=== PATIENT | female | born 1940 | race Caucasian/White ===

== ENCOUNTER → 2018-06-01 | Outpatient (CLI) | payer MEDICARE ==
[~2018-06-01] MED LIST: CATHETER FLUSH 10 ML SYR IV PRN; REGADENOSON 0.4 MG/5 ML SYR (LEXISCAN) IV ONE
[2018-06-01 12:38] VITALS: BP 136/74
--- NOTE | 2018-06-02 04:49 | STRESS TEST ---
DATE OF SERVICE: 06/01/2018 RESTING AND POST REGADENOSON TECHNETIUM-99M TETROFOSMIN SPECT CT IMAGING ORDERING PHYSICIAN: Dr. Hoff. PRIMARY PHYSICIAN: Dr. Chandra. CLINICAL DIAGNOSES: Palpitations, diabetes, and tobacco use. Baseline images were carried out after injection of 10.24 mCi of technetium-99m Tetrofosmin. This was followed by 0.4 mg regadenoson and 30.9 mCi of technetium-99m Tetrofosmin for stress imaging. The electrocardiogram showed sinus rhythm at baseline. It did not change significantly with the regadenoson infusion. The patient tolerated the procedure well. Review of images at rest and following stress does not indicate any significant perfusion defects. Gated images show hyperdynamic left ventricular systolic function with a calculated ejection fraction 92%. TID is absent (0.87). Left ventricular end diastolic volume is 16 mL. CONCLUSIONS: 1. No evidence of significant myocardial ischemia or infarction is seen. 2. Hyperdynamic left ventricular systolic function with a calculated ejection fraction 92%. 3. No regional wall motion abnormalities seen on this study. Job ID: [id number] DocumentID: [id number] Dictated Date: 06/01/2018 23:31:44 Pastry Cook Helper Date: 06/02/2018 04:48:09 Dictated By: KIRK HOFF MD, MA, FACP, FACC,
== END ==
LOC: CARD 09:31
PROVIDERS: ATTEND Internal Medicine Cardiovascular Disease
DX: R00.2 Palpitations (principal); E11.22 Type 2 diabetes mellitus with diabetic chronic kidney disease; N18.3 Chronic kidney disease, stage 3 (moderate); Z72.0 Tobacco use
CPT/HCPCS: 78452; 93017

== ENCOUNTER 2018-09-09 11:00 | Outpatient (CLI) | payer MEDICARE ==
[~2018-09-09] VITALS: Ht 149.9 cm; Wt 57.2 kg
[~2018-09-09 11:00] MED LIST changes: -CATHETER FLUSH 10 ML SYR IV PRN; -REGADENOSON 0.4 MG/5 ML SYR (LEXISCAN) IV ONE; +SITA100T12 PO
[2018-09-09] MEDS ORDERED: TERI202.4P SQ (11:04)
[2018-09-09] MEDS ORDERED: INSU100I29 SQ (11:04)
[2018-09-09] MEDS ORDERED: BUDE10.2 IH (11:04)
[2018-09-09] MEDS ORDERED: GLIM2TAB PO (11:04)
== END 2018-09-09 11:08 | disposition home or self-care (01) ==
LOC: PREOP 11:00
PROVIDERS: ATTEND Specialist
DX: Z01.818 Encounter for other preprocedural examination (principal)

== ENCOUNTER 2018-09-29 05:52 | Outpatient (CLI) | payer MEDICARE ==
[~2018-09-29 05:52] MED LIST changes: +BUDE10.2 IH; +GLIM2TAB PO; +INSU100I29 SQ; +TERI202.4P SQ
== END 2018-09-29 10:28 | disposition home or self-care (01) ==
LOC: PREOP 05:52
PROVIDERS: ATTEND Specialist
DX: Z01.818 Encounter for other preprocedural examination (principal)

== ENCOUNTER 2018-10-01 06:33 | Day surgery (SDC) | payer MEDICARE ==
[~2018-10-01] VITALS: Ht 149.9 cm; Wt 57.2 kg
[2018-10-01 06:35] VITALS: BP 144/79
[2018-10-01] MEDS ORDERED: TIMOLOL MALEATE 0.5% 5 ML (TIMOPTIC) BTL OU PRN (06:45)
[2018-10-01] MEDS ORDERED: MOXIFLOXACIN OPHTH SOLN 5 MG/ML 0.3 ML SYRINGE OP ONE (06:45)
[2018-10-01] MEDS ORDERED: POVIDONE (BETADINE) OPHTH SOLN 5% 30 ML OP ONE (06:45)
[2018-10-01] MEDS ORDERED: LIDOCAINE PF 1% 2 ML AMP IR PRN (06:45)
[2018-10-01] MEDS: TETRACAINE 0.5% OPHTH SOLN 4 ML BTL (SINGLE DOSE ONLY) OU PRN ×4 (06:49→07:08)
[2018-10-01] MEDS: PHENYLEPHRINE 10% OPHTH (NEO-SYN) 5 ML BTL OU SCH ×3 (06:57→07:08)
[2018-10-01] MEDS: CYCLOPENTOLATE 1% (CYCLOGYL) 2 ML DROPS OP SCH ×3 (06:57→07:08)
[2018-10-01] MEDS ORDERED: MIDAZOLAM 2 MG/2 ML (VERSED) VIAL ONE (07:27)
--- NOTE | 2018-10-01 07:27 | Ophthalmologist Pre-Op Note ---
Pre-Operative Progress Note H&P Reviewed The H&P was reviewed, patient examined and no changes noted. Date H&P Reviewed: Oct 01, 2018 Time H&P Reviewed: 07:27 Pre-Op Dx Cataract, Left Eye DEVIN DIETZ MD Oct 01, 2018 07:27
--- NOTE | 2018-10-01 07:50 | Ophthalmology Operative Report ---
Cataract removal/placement IOL PREOPERATIVE DIAGNOSIS: Cataract Left Eye POSTOPERATIVE DIAGNOSIS: Cataract Left Eye PROCEDURE: Cataract removal and placement of posterior chamber implant, left eye SURGEON: Carl Dietz ANESTHESIA: Topical with sedation COMPLICATIONS: None ESTIMATED BLOOD LOSS: Minimal DESCRIPTION OF PROCEDURE: After proper informed consent was obtained, the patient, a 78 female, was taken to the Operating Room and the left eye was anesthetized with tetracaine. The left eye was then prepped and draped in the usual manner. A wire lid speculum was placed. A paracentesis was made at the left hand position. Preservative free lidocaine was injected into the anterior chamber followed by viscoelastic. A clear corneal incision was made in the temporal position. A capsulorrhexis was preformed and the central nuclear and cortical material were removed. The posterior capsule was polished and an Ahmet 23.0 AU00T0 was placed into the capsular bag. The residual viscoelastic was aspirated and balanced saline solution was injected into the anterior chamber. Moxifloxacin was injected into the anterior chamber. The wound was checked and found to be water tight. The patient tolerated the procedure well without complications. CARL DIETZ MD Oct 01, 2018 07:50
[2018-10-01 08:00] VITALS: BP 142/73
--- NOTE | 2018-10-01 10:33 | Anesthesia-General Post-Op ---
MAC Patient Condition Mental Status/LOC: Same as Preop Cardiovascular: Satisfactory Nausea/Vomiting: Absent Respiratory: Satisfactory Pain: Controlled Complications: Absent Post Op Complications Complications None Follow Up Care/Instructions Patient Instructions None needed. Anesthesiology Discharge Order Discharge Order Patient is doing well, no complaints, stable vital signs, no apparent adverse anesthesia problems. No complications reported per nursing. BREN GONZALES CRNA Oct 01, 2018 10:33
== END 2018-10-01 08:00 | disposition home or self-care (01) ==
LOC: SDC 06:33
PROVIDERS: ATTEND Specialist
DX: H25.12 Age-related nuclear cataract, left eye (principal); M19.91 Primary osteoarthritis, unspecified site; J44.9 Chronic obstructive pulmonary disease, unspecified; E11.40 Type 2 diabetes mellitus with diabetic neuropathy, unspecified; F17.210 Nicotine dependence, cigarettes, uncomplicated; Z79.4 Long term (current) use of insulin; Z79.899 Other long term (current) drug therapy; Z88.2 Allergy status to sulfonamides; Z88.5 Allergy status to narcotic agent

== ENCOUNTER 2019-10-03 21:56 | Inpatient (IN) | payer MEDICARE, OTHER ==
[~2019-10-03] VITALS: Ht 147 cm; Wt 61.0 kg
[~2019-10-03 21:56] MED LIST changes: -ASCO250T17 PO; -CHOL500050 PO; -DOCU100T7 PO; -GABA-486 PO; -MELA5TAB14 PO; -OMEP20TA33 PO
--- NOTE | 2019-10-03 23:27 | NUR ---
ARRIVED VIA [facility]. PLACED IN ROOM CU5. TRANSFERRED TO ICU MONITORS. INITIAL ASSESSMENT TOOK PLACE. SEE EMR.
[2019-10-03 23:36] VITALS: BP 80/53
[2019-10-03 23:38] VITALS: BP 100/55
[2019-10-03] MEDS: NOREPINEPHRINE 4 MG/250 ML 250 ML IV SCH (23:40)
[2019-10-03] MEDS ORDERED: LACTATED RINGERS 1,000 ML IV ONE (23:59)
[2019-10-04] VITALS (25 sets, daily range): BP systolic 83–141; BP diastolic 49–106
[2019-10-04] MEDS ORDERED: ACETAMINOPHEN 325 MG TABLET PO PRN
--- NOTE | 2019-10-04 00:05 | NUR ---
CONTACTED E-PHARMACY DISCUSSED ZOSYN DOSING. REPORTED THAT ZOSYN WAS GIVEN TO PATIENT AT [facility] [place] 2130 AND RECEIVED 2.25G IV. VERIFIED TO GIVE THE 4.5G DOSE OF ZOSYN IV AT 0300.
[2019-10-04] MEDS: LACTATED RINGERS 1,000 ML IV SCH ×4 (00:10→20:39)
--- NOTE | 2019-10-04 00:15 | NUR ---
CONTACTED DR. ZHANG FOR CENTRAL LINE PLACEMENT. BRIEFED HIM ON PATIENT. INFORMED HIM LEVOPHED IS RUNNING IN 18GA LEFT AC IV. WILL COME IN PLACE CENTRAL LINE IN AM AND TO CONTACT HIM IF THE LINE GOES BAD.
[2019-10-04 02:17] LABS: BASOPHILS % (AUTO) 0 % (0-10); EOSINOPHILS % (AUTO) 0 % (0-10); HEMATOCRIT 34 % (35-52); HEMOGLOBIN 11.2 G/DL (11.5-16.0); LYMPHOCYTES # (AUTO) 1.7 X 10^3 (1.0-4.0); LYMPHOCYTES % (AUTO) 7 % (12-44); MEAN CORPUSCULAR HEMOGLOBIN 29 PG (25-34); MEAN CORPUSCULAR HGB CONC 33 G/DL (32-36); MEAN CORPUSCULAR VOLUME 89 FL (80-99); MEAN PLATELET VOLUME 11.1 FL (7.4-10.4); MONOCYTES # (AUTO) 1.7 X 10^3 (0.0-1.0); MONOCYTES % (AUTO) 7 % (0-12); NEUTROPHILS # (AUTO) 22.6 X 10^3 (1.8-7.8); NEUTROPHILS % (AUTO) 87 % (42-75); PLATELET COUNT 254 10^3/uL (130-400); RED CELL DISTRIBUTION WIDTH 13.9 % (10.0-14.5); WHITE BLOOD COUNT 26.1 10^3/uL (4.3-11.0)
[2019-10-04 02:24] LABS: POTASSIUM 3.9 MMOL/L (3.6-5.0)
[2019-10-04 02:25] LABS: CALCIUM 7.3 MG/DL (8.5-10.1)
[2019-10-04 02:29] LABS: CREATININE SERUM 1.06 MG/DL (0.60-1.30); PHOSPHORUS 3.3 MG/DL (2.3-4.7)
[2019-10-04 02:31] LABS: MAGNESIUM 1.3 MG/DL (1.6-2.4)
[2019-10-04] MEDS: POTASSIUM CL 10MEQ/50ML IVPB 50 ML IV SCH (02:57)
[2019-10-04] MEDS: KCL 20 MEQ TAB (K-DUR) PO SCH (02:58)
[2019-10-04] MEDS: MAGNESIUM 1 GM/100 ML IVPB 100 ML IV SCH ×5 (02:58→06:44)
[2019-10-04] MEDS ORDERED: MAGNESIUM 4 GM/100 ML IVPB 100 ML IV ONE (03:00)
[2019-10-04 03:01] LABS: BAND NEUTROPHILS 10 %; LYMPHOCYTES % (MANUAL) 3 %; MONOCYTES % (MANUAL) 4 %; NEUTROPHILS % (MANUAL) 83 %
[2019-10-04 03:02] LABS: RBC MORPH NORMAL
[2019-10-04] MEDS: PIPERACILLIN/TAZOBACTAM (BULK) 4.5 GM in NS (IVPB) 100 ML IV SCH ×3 (03:28→17:39)
--- NOTE | 2019-10-04 04:45 | NUR ---
SPOKE WITH MARTHA (). UPDATE PROVIDED. SEE EMR. INFORMED HIM OF OUR CURRENT VISITOR POLICY. DISCUSSED THAT PATIENT IS NOT TO HAVE A VISITOR UNTIL WE RECEIVE HER COVID-19 RESULTS. VERBALIZED UNDERSTANDING THAT IF SHE IS NEGATIVE SHE WILL BE ALLOWED TO HAVE A VISITOR AND IF POSITIVE WILL CONTINUE TO NOT BE ABLE TO HAVE VISITORS.
--- NOTE | 2019-10-04 05:27 | Pulmonary Consultation ---
History of Present Illness History of Present Illness Date Seen by Provider: Oct 04, 2019 Time Seen by Provider: 05:00 Date of Admission History of Present Illness 79yo transferred here from [facility] secondary to UTI with sepsis and shock. Pt is currently on Levophed secondary to hypotension. She has received around 4 liters of LR through the night. Pt denies CP, abdominal pain. I am consulted for ICU management. Allergies and Home Medications Allergies Coded Allergies: Sulfa (Sulfonamide Antibiotics) (Verified Allergy, Unknown, 09/09/18) codeine (Verified Allergy, Unknown, 09/09/18) cortisone (Verified Allergy, Unknown, 09/09/18) fluoxetine (Verified Allergy, Unknown, 09/09/18) metformin (Verified Allergy, Unknown, 09/09/18) prednisone (Verified Allergy, Unknown, 09/09/18) Home Medications Budesonide/Formoterol Fumarate 10.2 Gm Hfa.aer.ad, 2 PUFF IH BID PRN for WHEEZING, (Reported) Glimepiride 2 Mg Tablet, 2 MG PO DAILY, (Reported) Insulin Detemir 100 Unit/1 Ml Insuln.pen, 26 UNIT SQ HS, (Reported) Sitagliptin Phosphate 100 Mg Tablet, 100 MG PO DAILY, (Reported) Teriparatide 600 Mcg/2.4 Ml Syr, 20 MCG SQ HS, (Reported) Past Rdnuxiz-Epavpe-Uasenb Hx Patient Social History Alcohol Use: Denies Use Recreational Drug Use: No Smoking Status: Never a Smoker Recent Foreign Travel: No Recent Hopitalizations: No Seasonal Allergies Seasonal Allergies: No Past Medical History Respiratory: Yes COPD Genitourinary: Yes UTI-Chronic Endocrine: Yes Family Medical History Hypertension 19 FATHER Review of Systems Time Seen by Provider: 07:06 Constitutional: Fever, Chills, Sweats, Weakness, Malaise, Other Eyes: No: Pain, Vision change, Conjunctivae inflammation, Eyelid inflammation, Other, Redness ENT: No: Ear pain, Ear discharge, Nose pain, Nose discharge, Nose congestion, Mouth pain, Mouth swelling, Throat pain, Throat swelling, Other Respiratory: Cough, Dry, Shortness of breath, SOB with excertion; No: Wheezing, Hemoptysis, Pleuritic Pain, Sputum, Wheezing, Other Sepsis Event Evaluation Height, Weight, BMI Height: 4'11.00" Weight: 126lbs. 0.0oz. 57.133362ax; 27.76 BMI Method: Exam Exam Vital Signs Date Time Temp Pulse Resp B/P (MAP) Pulse Ox O2 Delivery O2 Flow Rate FiO2 10/04/19 04:00 79 21 93/51 (65) 98 Nasal Cannula 2.00 10/04/19 03:48 99 Nasal Cannula 2.00 10/04/19 03:45 36.5 82 21 112/67 (82) 99 Nasal Cannula 2.00 10/04/19 03:28 84 110/57 10/04/19 03:00 81 19 109/59 (76) 99 Nasal Cannula 2.00 10/04/19 02:00 92 11 109/56 (73) 99 Nasal Cannula 2.00 10/04/19 01:00 91 10/04/19 01:00 91 23 106/57 (73) 99 Nasal Cannula 2.00 10/04/19 00:10 80 116/63 10/04/19 00:04 97 25 98/50 (66) 97 Nasal Cannula 2.00 10/03/19 23:40 104 10/03/19 23:40 110 80/53 10/03/19 23:40 96 Nasal Cannula 2.00 10/03/19 23:38 107 18 100/55 (70) Nasal Cannula 2.00 10/03/19 23:36 37.6 110 22 80/53 (62) 96 Nasal Cannula 2.00 I & O 10/04/19 07:00 Intake Total 11363 ml Output Total 825 ml Balance 84289 ml Height & Weight Height: 4'11.00" Weight: 126lbs. 0.0oz. 57.911337nq; 27.76 BMI Method: General Appearance: Anxious, Mild Distress HEENT: PERRL/EOMI, Pharynx Normal Respiratory: Chest Non Tender, No Accessory Muscle Use, No Respiratory Distress, Decreased Breath Sounds Cardiovascular: Regular Rate, Rhythm, No Edema Capillary Refill: Less Than 3 Seconds Gastrointestinal: normal bowel sounds, non tender, soft Extremity: Normal Capillary Refill, Normal Inspection Neurologic/Psychiatric: Alert, Oriented x3 Skin: Normal Color, Warm/Dry Lymphatic: No Adenopathy Results Lab Laboratory Tests 10/04/19 02:00 Assessment/Plan Assessment/Plan Septic shock -Continue Levophed -Will place central line. -Continue IVF Hypoxic -Check CXR -Check ABG Metabolic lactic acidosis -IVF UTI -Continue Zosyn add Vancomycin -Almeida cultures pending JACINTA JOSEPH DO Oct 04, 2019 05:27
[2019-10-04] MEDS: inSUlin ASPART (NovoLOG) 1 UNIT/0.01 ML (CHARGE PER UNIT) SC SCH ×3 (05:42→17:34)
--- NOTE | 2019-10-04 05:50 | NUR ---
DR. JOSEPH HERE TO SEE PATIENT. GAVE ORDER FOR NORMAL SALINE BOLUS. SEE MAR FOR VITAL SIGN CHANGES. INFORMED HIM OF LEVOPHED RUNNING IN PERIPHERAL IV. WILL TRY FLUID BOLUS THEN CONSIDER CENTRAL LINE.
[2019-10-04] MEDS ORDERED: NS IV 1000 ML 1,000 ML ONE (05:52)
[2019-10-04 05:58] LABS: ABG OXYGEN SATURATION 98 % (94-100); ABG PCO2 36 MMHG (35-45); ABG PH 7.37 (7.37-7.43); ABG PO2 97 MMHG (79-93); ABG TCO2 21.8 MMOL/L (21.0-31.0)
[2019-10-04 05:59] LABS: ALLENS TEST YES-POS; INSPIRED O2 2L; VENTILATOR NO
[2019-10-04] MEDS ORDERED: NS IV 1000 ML 1,000 ML IV SCH (06:00)
--- NOTE | 2019-10-04 06:05 | History & Physical-Hospitalist ---
History of Present Illness HPI/Chief Complaint CC: Severe sepsis/ Septic shock HPI: This is a 79yoWF clinic Pt of Dr. Chandra, who was sent to a higher level of care after she presented to the [facility] ER in severe sepsis with early septic shock. I had taken care of her in march for Pyelonephritis and at that point she did require Levophed and aggressive treatment but she reports that she has had a couple of UTIs in the past since that time and I will go ahead and consult urology to try to prevent the recurrence of this issue. She continues to smoke. Overall she is doing fairly well, she is able to contemplate eating and drinking safely and she is more alert. I conferred with RN and reviewed meds and labs and we are awaiting the COVID-19 swab. Source: patient, RN/MD, old records Exam Limitations: no limitations Date Seen 10/04/19 Time Seen by a Provider: 09:30 Attending Physician Jeffrey Pérez MD PCP Mauricio Chandra DO Referring Physician Date of Admission Oct 03, 2019 at 23:27 Home Medications & Allergies Home Medications Reviewed patient Home Medication Reconciliation performed by pharmacy medication reconciliations accounts payable technician and/or nursing. Patients Allergies have been reviewed. Allergies Allergies Coded Allergies Sulfa (Sulfonamide Antibiotics) (Verified Allergy, Unknown, 09/09/18) codeine (Verified Allergy, Unknown, 09/09/18) cortisone (Verified Allergy, Unknown, 09/09/18) fluoxetine (Verified Allergy, Unknown, 09/09/18) metformin (Verified Allergy, Unknown, 09/09/18) prednisone (Verified Allergy, Unknown, 09/09/18) Past Muwlymz-Trxili-Bwdxuu Hx Past Med/Social Hx: Reviewed Nursing Past Med/Soc Hx, Reviewed and Corrections made Patient Social History Marrital Status: Employed/Student: employed, retired Alcohol Use: Denies Use Recreational Drug Use: No Smoking Status: Current Everyday Smoker Physical Abuse Screen: No Sexual Abuse: No Recent Foreign Travel: No Recent Hopitalizations: No Seasonal Allergies Seasonal Allergies: No Past Medical History Respiratory: COPD, Emphysema Cardiac: Hypertension Neurological: Neuropathy Genitourinary: Bladder Infection, Renal Failure, UTI-Chronic Musculoskeletal: Osteoporosis, Arthritis, Chronic Back Pain Endocrine: Diabetes, Insulin dep Family History Hypertension 19 FATHER Review of Systems Constitutional: see HPI, other (fatigue) Respiratory: dyspnea on exertion Physical Exam Physical Exam Vital Signs Vital Signs - First Documented 10/03/19 23:36 Temp 37.6 Pulse 110 Resp 22 B/P (MAP) 80/53 (62) Pulse Ox 96 O2 Delivery Nasal Cannula O2 Flow Rate 2.00 Capillary Refill : Less Than 3 Seconds Height, Weight, BMI Height: 4'11.00" Weight: 126lbs. 0.0oz. 57.931771el; 27.76 BMI Method: General Appearance: Chronically ill, Mild Distress, Thin Eyes: Right Eye Normal Inspection, Right Eye PERRL HEENT: PERRL/EOMI, TMs Normal, Normal ENT Inspection, Pharynx Normal, Moist Mucous Membranes Neck: Full Range of Motion, Normal Inspection, Non Tender Respiratory: Chest Non Tender, Lungs Clear, Normal Breath Sounds, No Accessory Muscle Use, No Respiratory Distress, Decreased Breath Sounds Cardiovascular: Regular Rate, Rhythm, No Edema, No Gallop, No JVD, No Murmur, Normal Peripheral Pulses Gastrointestinal: Normal Bowel Sounds, No Organomegaly, No Pulsatile Mass, Non Tender, Soft Back: Normal Inspection, No CVA Tenderness, No Vertebral Tenderness Extremity: Normal Capillary Refill, Normal Inspection, Normal Range of Motion, Non Tender, No Calf Tenderness, No Pedal Edema Neurologic/Psychiatric: Alert, Oriented x3, No Motor/Sensory Deficits, Normal Mood/Affect Skin: Normal Color, Warm/Dry Lymphatic: No Adenopathy Results Results/Procedures Labs Laboratory Tests 10/04/19 02:00 Patient resulted labs reviewed. Assessment/Plan Admission Diagnosis Assessment: Septic shock UTI Acute renal failure Osteoporosis Spinal compression fractures DM insulin requiring COPD Current smoker Plan: ICU status Pressor therapy Dr. Diaz appreciated Urology consultation for recurrent UTI's Smoking cessation Admission Status: Inpatient Order (span 2 midnights) Reason for Inpatient Admission: severe sepsis Diagnosis/Problems Diagnosis/Problems (1) Sepsis (2) UTI (urinary tract infection) due to Enterococcus Clinical Quality Measures DVT/VTE Risk/Contraindication: Risk Factor Score Per Nursin RFS Level Per Nursing on Admit: 4+=Very High RIVERA SILVA DO Oct 04, 2019 06:05
--- NOTE | 2019-10-04 06:11 | NUR ---
PATIENT SPOKE WITH ON THE PHONE, FEARFUL OF . THIS MESMERIST GAVE AN UPDATE TO THE CONDITION. DECREASE BLOOD PRESSURE AND NEEDING TO INCREASE BLOOD PRESSURE MEDICATIONS.
--- NOTE | 2019-10-04 07:03 | Pulmonary Procedures ---
Pulmonary Procedures Date of Procedure Date of Service: Oct 04, 2019 Lumen: triple (US guided) Central Line Procedure: betadine prep, sterile drapes applied, sterile dressing applied Position: internal jugular (R) Anesthesia: Lidocaine Volume Anesthetic (ccs): 4 Complications: none Post Position: sutured, good blood return, position confirmed w/ CXR (CXR is pending ) JACINTA JOSEPH DO Oct 04, 2019 07:03
[2019-10-04] MEDS ORDERED: PHARMACY TO DOSE IV SCH (07:15)
--- NOTE | 2019-10-04 07:38 | Diagnostic Imaging Report ---
INDICATION: Central line placement COMPARISON: None FINDINGS: Single view of the chest demonstrates right IJ catheter with the tip in the SVC. There is no pneumothorax. Chronic interstitial changes present bilaterally. IMPRESSION: No post procedure pneumothorax. Well-positioned IJ catheter. Dictated by: Dictated on workstation # [id number]
--- NOTE | 2019-10-04 07:40 | NUR ---
VANCOMYCIN DOSING SCR 1.06; ADJ BW ~ 48.6 KG; CRCL ~ 34; BOLUS VANC 20 MG/KG X 60 KG ~ 1250 MG THEN VANC 15 MG/KG ~ 1 GM Q24H CHECK TROUGH LEVEL 10/05 0700 HOLD DOSE AND CONTACT PHARMACY IF LEVEL IS GREATER THAN 20
[2019-10-04] MEDS ORDERED: VANCOMYCIN INJECTION 1,250 MG in NS (IVPB) 250 ML IV NR (07:45)
[2019-10-04] MEDS: NOREPINEPHRINE 4 MG/250 ML 250 ML IV SCH (10:09)
--- NOTE | 2019-10-04 10:32 | NUR ---
Pt is Buddhism. Production Control Supervisor contacted by phone. Pt stated she would like anointing. Fr Bah, designated VALARIE/WILLIAN monteneg[place] notified.
[2019-10-04 12:34] LABS: BILIRUBIN,URINE NEGATIVE (NEGATIVE); CLARITY,URINE CLEAR; COLOR,URINE YELLOW; GLUCOSE, URINE (UA) TRACE (NEGATIVE); KETONES,URINE NEGATIVE (NEGATIVE); LEUKOCYTE ESTERASE ,URINE 2+ (NEGATIVE); NITRITE,URINE NEGATIVE (NEGATIVE); PH,URINE 5.5 (5-9); PROTEIN,URINE NEGATIVE (NEGATIVE)
[2019-10-04 12:48] LABS: BACTERIA,URINE FEW /HPF; SQUAMOUS EPITHELIAL CELL,UR 0-2 /HPF; WBC,URINE 50-100 /HPF
[2019-10-04] MEDS ORDERED: OMEP20TA33 PO (15:27)
[2019-10-04] MEDS ORDERED: DOCU100T7 PO (15:27)
[2019-10-04] MEDS ORDERED: CHOL500050 PO (15:27)
[2019-10-04] MEDS ORDERED: GABA-486 PO (15:27)
[2019-10-04] MEDS ORDERED: MELA5TAB14 PO (15:27)
[2019-10-04] MEDS ORDERED: ASCO250T17 PO (15:27)
--- NOTE | 2019-10-04 15:27 | NUR ---
SPOKE WITH THE PATIENTS (MARTHA) AND WENT THRU THE EXT MED HISTORY TO COMPLETE THE MED REC MARTHA WAS ABLE TO LIST ALL THE PATIENTS MEDICATIONS AND TELL ME HOW SHE TAKES THEM OTC MEDS: STOOL SOFTENER MELATONIN PRN VIT D VIT C OMEPRAZOLE PRN
[2019-10-04] MEDS ORDERED: HYDROcodone/APAP 5 MG/325 MG (LORTAB) TAB PO PRN (17:00)
[2019-10-04] MEDS ORDERED: NON-FORMULARY MEDICATION 1 EA EA (Omeprazole Magnesium (Prilosec Otc) 20 MG) PO PRN (17:00)
[2019-10-04] MEDS ORDERED: PANTOPRAZOLE 20 MG TABLET (PROTONIX) PO PRN (17:00)
[2019-10-04] MEDS ORDERED: NON-FORMULARY MEDICATION 1 EA EA (Melatonin 5 MG) PO PRN (17:00)
[2019-10-04] MEDS: GABAPENTIN 100 MG (NEURONTIN) CAP PO SCH (20:39)
[2019-10-04] MEDS: FAMOTIDINE 20MG/2ML IV (PEPCID) IVP SCH (20:39)
[2019-10-04] MEDS: MELATONIN 10 MG TABLET PO PRN (20:49)
[2019-10-04] MEDS ORDERED: INSULIN DETEMIR 26 UNIT SQ SCH (21:00)
[2019-10-05] VITALS (25 sets, daily range): BP systolic 90–141; BP diastolic 47–82
[2019-10-05] MEDS: inSUlin ASPART (NovoLOG) 1 UNIT/0.01 ML (CHARGE PER UNIT) SC SCH ×5 (00:14→20:14)
[2019-10-05] MEDS: NOREPINEPHRINE 4 MG/250 ML 250 ML IV SCH ×3 (00:14→20:14)
[2019-10-05] MEDS: LACTATED RINGERS 1,000 ML IV SCH ×4 (03:31→20:15)
[2019-10-05] MEDS: PIPERACILLIN/TAZOBACTAM (BULK) 4.5 GM in NS (IVPB) 100 ML IV SCH ×3 (03:31→20:09)
[2019-10-05 03:49] LABS: BASOPHILS % (AUTO) 0 % (0-10); EOSINOPHILS # (AUTO) 0.2 10^3/uL (0.0-0.3); EOSINOPHILS % (AUTO) 1 % (0-10); HEMATOCRIT 32 % (35-52); HEMOGLOBIN 10.7 G/DL (11.5-16.0); LYMPHOCYTES # (AUTO) 2.4 X 10^3 (1.0-4.0); LYMPHOCYTES % (AUTO) 16 % (12-44); MEAN CORPUSCULAR HGB CONC 34 G/DL (32-36); MEAN CORPUSCULAR VOLUME 88 FL (80-99); MEAN PLATELET VOLUME 10.8 FL (7.4-10.4); MONOCYTES % (AUTO) 7 % (0-12); NEUTROPHILS # (AUTO) 11.4 X 10^3 (1.8-7.8); NEUTROPHILS % (AUTO) 76 % (42-75); PLATELET COUNT 196 10^3/uL (130-400); RED CELL DISTRIBUTION WIDTH 14.2 % (10.0-14.5); WHITE BLOOD COUNT 15.1 10^3/uL (4.3-11.0)
[2019-10-05 03:59] LABS: POTASSIUM 3.3 MMOL/L (3.6-5.0)
[2019-10-05 04:00] LABS: CALCIUM 7.8 MG/DL (8.5-10.1)
[2019-10-05 04:05] LABS: CREATININE SERUM 0.95 MG/DL (0.60-1.30); PHOSPHORUS 2.7 MG/DL (2.3-4.7)
[2019-10-05 04:07] LABS: MAGNESIUM 1.9 MG/DL (1.6-2.4)
[2019-10-05 04:13] LABS: MEAN CORPUSCULAR HEMOGLOBIN 29 PG (25-34)
[2019-10-05] MEDS: MAGNESIUM 1 GM/100 ML IVPB 100 ML IV SCH ×2 (05:16→05:17)
[2019-10-05] MEDS: POTASSIUM CL 10MEQ/50ML IVPB 50 ML IV SCH ×6 (05:16→07:58)
[2019-10-05] MEDS: KCL 20 MEQ TAB (K-DUR) PO SCH ×2 (05:17)
--- NOTE | 2019-10-05 06:01 | Pulmonary Progress Note ---
Subjective Time Seen by a Provider: 05:59 Sepsis Event Evaluation Height, Weight, BMI Height: 4'11.00" Weight: 126lbs. 0.0oz. 57.811349yt; 27.76 BMI Method: Focused Exam Lactate Level 10/04/19 02:00: Lactic Acid Level 2.23*H 10/04/19 04:22: Lactic Acid Level 1.71 Exam Exam Vital Signs Date Time Temp Pulse Resp B/P (MAP) Pulse Ox O2 Delivery O2 Flow Rate FiO2 10/05/19 05:21 116/56 10/05/19 05:00 98 25 108/55 (72) 95 Nasal Cannula 1.00 10/05/19 04:00 99 17 120/57 (78) 95 Nasal Cannula 1.00 10/05/19 03:36 36.6 10/05/19 03:36 95 Nasal Cannula 1.00 10/05/19 03:00 99 20 109/59 (76) 95 Nasal Cannula 1.00 10/05/19 02:00 87 20 95/52 (66) 95 Nasal Cannula 1.00 10/05/19 01:00 83 16 96/54 (68) 96 Nasal Cannula 1.00 10/05/19 01:00 56 10/05/19 00:14 90/55 10/05/19 00:12 36.7 92 22 90/55 (67) 94 Nasal Cannula 1.00 10/05/19 00:00 37.6 10/05/19 00:00 95 Nasal Cannula 1.00 10/04/19 22:00 102 19 94/55 (68) 95 Nasal Cannula 1.00 10/04/19 21:20 37.3 10/04/19 21:10 107 34 95 Nasal Cannula 1.00 10/04/19 21:00 115 20 139/68 (91) 95 Nasal Cannula 2.00 10/04/19 20:53 38.3 108 13 141/55 (83) 96 Nasal Cannula 2.00 10/04/19 20:50 38.3 10/04/19 20:00 109 133/70 (91) 97 Nasal Cannula 2.00 10/04/19 20:00 99 Nasal Cannula 2.00 10/04/19 19:00 106 35 136/68 (90) 96 Nasal Cannula 2.00 10/04/19 19:00 106 10/04/19 18:00 108 38 137/60 (85) 97 Nasal Cannula 2.00 10/04/19 17:00 101 36 137/58 (84) 97 Nasal Cannula 2.00 10/04/19 16:00 101 23 127/62 (83) 98 Nasal Cannula 2.00 10/04/19 16:00 99 Nasal Cannula 2.00 10/04/19 15:00 100 14 125/61 (82) 97 Nasal Cannula 2.00 10/04/19 14:00 93 27 117/58 (77) 98 Nasal Cannula 2.00 10/04/19 13:00 98 20 119/81 (94) 97 Nasal Cannula 2.00 10/04/19 12:41 89 10/04/19 12:00 99 Nasal Cannula 2.00 10/04/19 12:00 92 22 111/58 (75) 98 Nasal Cannula 2.00 10/04/19 11:00 89 30 133/106 (115) 98 Nasal Cannula 2.00 10/04/19 10:09 92 83/49 10/04/19 10:00 95 15 83/49 (60) 97 Nasal Cannula 2.00 10/04/19 09:00 90 24 117/54 (75) 97 Nasal Cannula 2.00 10/04/19 08:00 99 Nasal Cannula 2.00 10/04/19 08:00 83 21 108/52 (70) 98 Nasal Cannula 2.00 10/04/19 07:58 36.0 10/04/19 07:00 86 23 123/55 (77) 97 Nasal Cannula 2.00 10/04/19 06:55 97 Nasal Cannula 2.00 10/04/19 06:44 89 10/04/19 06:09 87 85/49 10/04/19 06:08 36.0 85 23 93/51 (65) 97 Nasal Cannula 2.00 I & O 10/05/19 07:00 Intake Total 7402.5 ml Output Total 3625 ml Balance 3777.5 ml Height & Weight Height: 4'11.00" Weight: 126lbs. 0.0oz. 57.962669oy; 27.76 BMI Method: General Appearance: Chronically ill, Mild Distress, Thin HEENT: PERRL/EOMI, TMs Normal, Normal ENT Inspection, Pharynx Normal, Moist Mucous Membranes Neck: Full Range of Motion, Normal Inspection, Non Tender Respiratory: Chest Non Tender, Lungs Clear, Normal Breath Sounds, No Accessory Muscle Use, No Respiratory Distress, Decreased Breath Sounds Cardiovascular: Regular Rate, Rhythm, No Edema, No Gallop, No JVD, No Murmur, Normal Peripheral Pulses Capillary Refill: Less Than 3 Seconds Gastrointestinal: normal bowel sounds, non tender, soft Extremity: Normal Capillary Refill, Normal Inspection, Normal Range of Motion, Non Tender, No Calf Tenderness, No Pedal Edema Neurologic/Psychiatric: Alert, Oriented x3, No Motor/Sensory Deficits, Normal Mood/Affect Skin: Normal Color, Warm/Dry Lymphatic: No Adenopathy Results Lab Laboratory Tests 10/04/19 02:00 10/05/19 03:30 Assessment/Plan Assessment/Plan Septic shock -Continue Levophed -COVID is pending -Continue IVF -Currently on Vanco and Zosyn Hypoxic -Oxygen - titrate down Metabolic lactic acidosis -IVF Hypokalemia -replace UTI -Continue Zosyn add Vancomycin -Almeida cultures pending JACINTA JOSEPH DO Oct 05, 2019 06:01
[2019-10-05] MEDS: GABAPENTIN 100 MG (NEURONTIN) CAP PO SCH ×3 (07:56→20:09)
[2019-10-05] MEDS ORDERED: VANCOMYCIN INJECTION 1,000 MG in NS (IVPB) 250 ML IV SCH (08:00)
[2019-10-05] MEDS ORDERED: ONDANSETRON 4 MG/2 ML (SDV) Z0FRAN IVP PRN (11:00)
--- NOTE | 2019-10-05 11:31 | Progress Note - Hospitalist ---
Subjective HPI/CC On Admission Date Seen by Provider: Oct 05, 2019 Time Seen by Provider: 10:00 CC: Severe sepsis/ Septic shock HPI: This is a 79yoWF clinic Pt of Dr. Chandra, who was sent to a higher level of care after she presented to the [facility] ER in severe sepsis with early septic shock. I had taken care of her in march for Pyelonephritis and at that point she did require Levophed and aggressive treatment but she reports that she has had a couple of UTIs in the past since that time and I will go ahead and consult urology to try to prevent the recurrence of this issue. She continues to smoke. Overall she is doing fairly well, she is able to contemplate eating and drinking safely and she is more alert. I conferred with RN and reviewed meds and labs and we are awaiting the COVID-19 swab. Subjective/Events-last exam Pt still awaiting Covid swab to come back Off Levophed pressor therapy Zofran given for nausea Very frail status May need inpatient rehab or swing bed status to ultimately return home and live with Review of Systems General: Fatigue, Malaise Gastrointestinal: Nausea, Vomiting Focused Exam Lactate Level 10/04/19 02:00: Lactic Acid Level 2.23*H 10/04/19 04:22: Lactic Acid Level 1.71 Objective Exam Vital Signs Vital Signs Date Time Temp Pulse Resp B/P (MAP) Pulse Ox O2 Delivery O2 Flow Rate FiO2 10/05/19 21:00 109 35 129/54 (79) 90 Room Air 10/05/19 20:11 10/05/19 12:00 36.8 Capillary Refill : Less Than 3 Seconds General Appearance: No Apparent Distress, WD/WN, Chronically ill, Thin Respiratory: Chest Non Tender, Lungs Clear, Normal Breath Sounds, No Accessory Muscle Use, No Respiratory Distress Cardiovascular: Regular Rate, Rhythm, No Edema, No Gallop, No JVD, No Murmur, Normal Peripheral Pulses Neurologic/Psychiatric: Alert, Oriented x3, No Motor/Sensory Deficits, Normal Mood/Affect Results/Procedures Lab Laboratory Tests 10/05/19 03:30 Patient resulted labs reviewed. Assessment/Plan Assessment and Plan Assess & Plan/Chief Complaint Assessment: Septic shock now off pressors UTI Acute renal failure Osteoporosis Spinal compression fractures DM insulin requiring COPD Current smoker Plan: ICU status Pressor therapy Dr. Diaz appreciated Urology consultation for recurrent UTI's Smoking cessation COVID swab pending Diagnosis/Problems Diagnosis/Problems (1) Sepsis (2) UTI (urinary tract infection) due to Enterococcus Clinical Quality Measures DVT/VTE Risk/Contraindication: Risk Factor Score Per Nursin RFS Level Per Nursing on Admit: 4+=Very High RIVERA SILVA DO Oct 05, 2019 11:31
--- NOTE | 2019-10-05 13:04 | CONSULTATION REPORT ---
DATE OF SERVICE: 10/05/2019 ATTENDING PHYSICIAN: Dr. Osman. SUMMARY: A 79-year-old white lady admitted with urosepsis and covered with appropriate antibiotic, allergic to SULFA. I was being consulted because of chronic urinary tract infection. The patient is a Covid TUI. IMPRESSION: 1. Urosepsis. 2. History of recurrent UTIs. PLAN: 1. Continue present management of the urosepsis. 2. Since chronic UTI is an outpatient problem, after she recovered from her present situation and Covid is ruled out, we will be happy to see her at the office for workup for her history of UTIs and has no reason to get further exposure of the Covid and the condition is completely chronic. Job ID: [id number] DocumentID: [id number] Dictated Date: 10/05/2019 12:01:00 Bar Back Date: 10/05/2019 13:03:32 Dictated By: CHUCK GARDUNO MD
[2019-10-05] MEDS: MELATONIN 10 MG TABLET PO PRN (20:09)
[2019-10-05] MEDS: FAMOTIDINE 20MG/2ML IV (PEPCID) IVP SCH (20:14)
[2019-10-06] VITALS (16 sets, daily range): BP systolic 90–153; BP diastolic 45–97
[2019-10-06] MEDS: PIPERACILLIN/TAZOBACTAM (BULK) 4.5 GM in NS (IVPB) 100 ML IV SCH ×3 (03:41→20:45)
[2019-10-06] MEDS: LACTATED RINGERS 1,000 ML IV SCH ×2 (03:42→13:09)
[2019-10-06 03:59] LABS: BASOPHILS % (AUTO) 0 % (0-10); EOSINOPHILS # (AUTO) 0.1 10^3/uL (0.0-0.3); EOSINOPHILS % (AUTO) 1 % (0-10); HEMATOCRIT 28 % (35-52); HEMOGLOBIN 9.5 G/DL (11.5-16.0); LYMPHOCYTES # (AUTO) 2.6 X 10^3 (1.0-4.0); LYMPHOCYTES % (AUTO) 21 % (12-44); MEAN CORPUSCULAR HEMOGLOBIN 30 PG (25-34); MEAN CORPUSCULAR HGB CONC 34 G/DL (32-36); MEAN CORPUSCULAR VOLUME 89 FL (80-99); MEAN PLATELET VOLUME 10.9 FL (7.4-10.4); MONOCYTES # (AUTO) 0.9 X 10^3 (0.0-1.0); MONOCYTES % (AUTO) 7 % (0-12); NEUTROPHILS # (AUTO) 8.9 X 10^3 (1.8-7.8); NEUTROPHILS % (AUTO) 71 % (42-75); PLATELET COUNT 180 10^3/uL (130-400); WHITE BLOOD COUNT 12.4 10^3/uL (4.3-11.0)
[2019-10-06 04:14] LABS: BUN/CREATININE RATIO 9; CALCIUM 7.8 MG/DL (8.5-10.1); CARBON DIOXIDE 24 MMOL/L (21-32); CHLORIDE 106 MMOL/L (98-107); CREATININE SERUM 0.85 MG/DL (0.60-1.30); GFR ESTIMATED > 60; MAGNESIUM 1.6 MG/DL (1.6-2.4); PHOSPHORUS 2.8 MG/DL (2.3-4.7); POTASSIUM 3.1 MMOL/L (3.6-5.0); SODIUM 138 MMOL/L (135-145)
[2019-10-06 04:17] LABS: GLUCOSE 46 MG/DL (70-105)
[2019-10-06] MEDS ORDERED: DEXTROSE 50% 50 ML (IMS) SYR IV ONE (04:30)
[2019-10-06] MEDS: MAGNESIUM 1 GM/100 ML IVPB 100 ML IV SCH ×4 (04:36→06:30)
[2019-10-06] MEDS: POTASSIUM CL 10MEQ/50ML IVPB 50 ML IV SCH ×8 (04:42→07:52)
[2019-10-06] MEDS: inSUlin ASPART (NovoLOG) 1 UNIT/0.01 ML (CHARGE PER UNIT) SC SCH ×4 (04:44→21:00)
[2019-10-06] MEDS: KCL 20 MEQ TAB (K-DUR) PO SCH ×2 (04:44)
--- NOTE | 2019-10-06 04:49 | NUR ---
Patient's blood sugar from lab was 46. Patient is alert and oriented. States she doesn't feel her blood sugar is low, and feels better. [place] juice given as well as 25cc of D50W. 15 minutes after medication given, blood sugar on accucheck machine reads 146. Will continue to monitor.
--- NOTE | 2019-10-06 05:51 | Pulmonary Progress Note ---
Subjective Time Seen by a Provider: 05:46 Subjective/Events-last exam Pt is doing better. Currently off levophed Sepsis Event Evaluation Height, Weight, BMI Height: 4'11.00" Weight: 126lbs. 0.0oz. [id number]; 27.76 BMI Method: Focused Exam Lactate Level 10/04/19 02:00: Lactic Acid Level 2.23*H 10/04/19 04:22: Lactic Acid Level 1.71 Exam Exam Vital Signs Date Time Temp Pulse Resp B/P (MAP) Pulse Ox O2 Delivery O2 Flow Rate FiO2 10/06/19 04:00 97 Nasal Cannula 1.00 10/06/19 04:00 36.8 10/06/19 03:00 90 18 90/54 (66) 97 Nasal Cannula 1.00 10/06/19 02:00 95 23 101/53 (69) 96 Nasal Cannula 1.00 10/06/19 01:23 37.3 103/49 (67) 10/06/19 01:00 105 31 113/81 (92) 96 Nasal Cannula 1.00 10/06/19 01:00 105 10/06/19 00:00 94 Room Air 10/06/19 00:00 96 24 93/48 (63) 95 Nasal Cannula 1.00 10/05/19 23:00 109 21 102/47 (65) 95 Nasal Cannula 1.00 10/05/19 22:40 111 33 101/56 (71) 94 Nasal Cannula 1.00 10/05/19 22:30 37.7 10/05/19 22:08 112 20 127/60 (82) 89 Room Air 10/05/19 21:00 109 35 129/54 (79) 90 Room Air 10/05/19 20:11 109 15 141/74 (96) 93 Room Air 10/05/19 20:00 94 Room Air 10/05/19 20:00 37.8 10/05/19 19:00 110 25 138/63 (88) 91 Room Air 10/05/19 19:00 110 10/05/19 18:00 106 43 131/58 (82) 96 Nasal Cannula 1.00 10/05/19 17:00 96 29 139/67 (91) 98 Nasal Cannula 1.00 10/05/19 16:30 98 Nasal Cannula 1.00 7/15/20 16:00 96 15 120/66 (84) 99 Nasal Cannula 1.00 10/05/19 15:00 96 25 93/60 (71) 98 Nasal Cannula 1.00 10/05/19 14:00 98 25 102/56 (71) 98 Nasal Cannula 1.00 10/05/19 13:00 100 31 96/49 (65) 95 Nasal Cannula 1.00 10/05/19 12:42 104 10/05/19 12:00 95 19 102/82 (89) 96 Nasal Cannula 1.00 10/05/19 12:00 36.8 10/05/19 12:00 98 Nasal Cannula 1.00 10/05/19 11:50 36.0 10/05/19 11:00 90 23 103/64 (77) 97 Nasal Cannula 1.00 10/05/19 10:00 96 12 99/48 (65) 87 Nasal Cannula 1.00 10/05/19 09:42 Nasal Cannula 2.00 10/05/19 09:00 92 30 96/60 (72) 95 Nasal Cannula 1.00 10/05/19 08:00 112 25 109/54 (72) 92 Nasal Cannula 1.00 10/05/19 07:40 95 Nasal Cannula 1.00 10/05/19 07:40 36.2 10/05/19 07:00 107 18 99/55 (70) 95 Nasal Cannula 1.00 10/05/19 06:42 99 10/05/19 06:00 102 28 117/63 (81) 95 Nasal Cannula 1.00 I & O 10/06/19 07:00 Intake Total 5020 ml Output Total 3900 ml Balance 1120 ml Height & Weight Height: 4'11.00" Weight: 126lbs. 0.0oz. [id number]; 27.76 BMI Method: General Appearance: No Apparent Distress, WD/WN, Chronically ill, Thin HEENT: PERRL/EOMI, TMs Normal, Normal ENT Inspection, Pharynx Normal, Moist Mucous Membranes Neck: Full Range of Motion, Normal Inspection, Non Tender Respiratory: Chest Non Tender, Lungs Clear, Normal Breath Sounds, No Accessory Muscle Use, No Respiratory Distress Cardiovascular: Regular Rate, Rhythm, No Edema, No Gallop, No JVD, No Murmur, Normal Peripheral Pulses Capillary Refill: Less Than 3 Seconds Gastrointestinal: normal bowel sounds, non tender, soft Extremity: Normal Capillary Refill, Normal Inspection, Normal Range of Motion, Non Tender, No Calf Tenderness, No Pedal Edema Neurologic/Psychiatric: Alert, Oriented x3, No Motor/Sensory Deficits, Normal Mood/Affect Skin: Normal Color, Warm/Dry Lymphatic: No Adenopathy Results Lab Laboratory Tests 10/05/19 03:30 10/06/19 03:40 Assessment/Plan Assessment/Plan Septic shock - improving Levophed - currently off -COVID is pending - Was done at [facility] [place] -Continue IVF -Currently on Zosyn -Vanco d/c'd. MRSA swab is negative Hypoxic -Oxygen - titrate down Metabolic lactic acidosis - resolved -IVF Hypokalemia -replace UTI -Continue Zosyn -[place] cultures pending JACINTA JOSEPH DO Oct 06, 2019 05:51
[2019-10-06] MEDS ORDERED: TROUGH ORDER-PHARMACY XX NR (07:00)
[2019-10-06] MEDS: NOREPINEPHRINE 4 MG/250 ML 250 ML IV SCH ×2 (07:51→16:43)
[2019-10-06] MEDS: GABAPENTIN 100 MG (NEURONTIN) CAP PO SCH ×3 (08:45→21:15)
--- NOTE | 2019-10-06 09:46 | Progress Note - Hospitalist ---
Subjective HPI/CC On Admission Date Seen by Provider: Oct 06, 2019 Time Seen by Provider: 09:30 CC: Severe sepsis/ Septic shock HPI: This is a 79yoWF clinic Pt of Dr. Chandra, who was sent to a higher level of care after she presented to the [facility] ER in severe sepsis with early septic shock. I had taken care of her in march for Pyelonephritis and at that point she did require Levophed and aggressive treatment but she reports that she has had a couple of UTIs in the past since that time and I will go ahead and consult urology to try to prevent the recurrence of this issue. She continues to smoke. Overall she is doing fairly well, she is able to contemplate eating and drinking safely and she is more alert. I conferred with RN and reviewed meds and labs and we are awaiting the COVID-19 swab. Subjective/Events-last exam Pt will come out of isolation, Klebsiella is the source of the fever Re-swabbing for COVID but no concerns at this point, just ruling out formally WBC 12.4, Hgb 9.5, Potassium 3.1 Transferring to fourth floor Pt misses her family and otherwise ready to get out of the ICU Inpatient rehab candidate Review of Systems General: Fatigue, Malaise Neurological: Confusion Focused Exam Lactate Level 10/04/19 02:00: Lactic Acid Level 2.23*H 10/04/19 04:22: Lactic Acid Level 1.71 Objective Exam Vital Signs Vital Signs Date Time Temp Pulse Resp B/P (MAP) Pulse Ox O2 Delivery O2 Flow Rate FiO2 10/06/19 19:18 37.3 101 18 151/69 (96) 95 Room Air 10/06/19 10:00 1.00 Capillary Refill : Less Than 3 Seconds General Appearance: No Apparent Distress, WD/WN, Chronically ill Respiratory: Chest Non Tender, Lungs Clear, Normal Breath Sounds, No Accessory Muscle Use, No Respiratory Distress Cardiovascular: Regular Rate, Rhythm, No Edema, No Gallop, No JVD, No Murmur, Normal Peripheral Pulses Neurologic/Psychiatric: Alert, Oriented x3, No Motor/Sensory Deficits, Normal Mood/Affect Results/Procedures Lab Laboratory Tests 10/06/19 03:40 Patient resulted labs reviewed. Assessment/Plan Assessment and Plan Assess & Plan/Chief Complaint Assessment: Septic shock now off pressors UTI Acute renal failure Osteoporosis Spinal compression fractures DM insulin requiring COPD Current smoker Plan: ICU status Pressor therapy dc Dr. Diaz appreciated Urology consultation for recurrent UTI's Smoking cessation COVID swab pending Transfer to 4th floor Reswab for COVID due to reagent unavailable Await urine culture to narrow antibiotics Replace potassium May need inpatient rehab Diagnosis/Problems Diagnosis/Problems (1) Sepsis (2) UTI (urinary tract infection) due to Enterococcus Clinical Quality Measures DVT/VTE Risk/Contraindication: Risk Factor Score Per Nursin RFS Level Per Nursing on Admit: 4+=Very High RIVERA SILVA DO Oct 06, 2019 09:46
--- NOTE | 2019-10-06 11:33 | NUR ---
Patient swabbed for COVID in [place] due to fever. Patient does not present with any other symptoms or have a risk for exposure. I reviewed her chart and she has Urosepsis. I spoke with Dr Osman and we agreed to discontinue isolation and the PUI status of the patient. Patients notified and escorted to room. KARISHMA Cleaning and Tamela notified.
--- NOTE | 2019-10-06 12:43 | NUR ---
This RN took over patient care at this time. patient stated she has had a problem with having to urinate all the time since having her Bello removed. patient also stated she did not want to be a bother and would like permission to ambulate on her own to and from the bathroom but didn't know if she could do it safely. This RN stated patient would not be a bother and that I would rather have patient call for assistance to avoid any falls. patient verbalized understanding and thanked this RN. no additional needs at this time
[2019-10-06] MEDS: FAMOTIDINE 20MG/2ML IV (PEPCID) IVP SCH (20:45)
[2019-10-06] MEDS: MELATONIN 10 MG TABLET PO PRN (22:34)
[2019-10-07] VITALS: BP 138/66
[2019-10-07] MEDS: LACTATED RINGERS 1,000 ML IV SCH ×2 (01:00→03:53)
[2019-10-07] MEDS: PIPERACILLIN/TAZOBACTAM (BULK) 4.5 GM in NS (IVPB) 100 ML IV SCH ×3 (03:53→18:31)
[2019-10-07 04:50] VITALS: BP 154/70
[2019-10-07] MEDS: NOREPINEPHRINE 4 MG/250 ML 250 ML IV SCH (05:20)
[2019-10-07 05:36] LABS: BASOPHILS % (AUTO) 0 % (0-10); EOSINOPHILS # (AUTO) 0.2 10^3/uL (0.0-0.3); EOSINOPHILS % (AUTO) 2 % (0-10); HEMATOCRIT 31 % (35-52); HEMOGLOBIN 10.3 G/DL (11.5-16.0); LYMPHOCYTES # (AUTO) 2.5 X 10^3 (1.0-4.0); LYMPHOCYTES % (AUTO) 23 % (12-44); MEAN CORPUSCULAR HEMOGLOBIN 29 PG (25-34); MEAN CORPUSCULAR HGB CONC 34 G/DL (32-36); MEAN CORPUSCULAR VOLUME 88 FL (80-99); MEAN PLATELET VOLUME 10.8 FL (7.4-10.4); MONOCYTES # (AUTO) 0.9 X 10^3 (0.0-1.0); MONOCYTES % (AUTO) 8 % (0-12); NEUTROPHILS # (AUTO) 7.1 X 10^3 (1.8-7.8); NEUTROPHILS % (AUTO) 66 % (42-75); PLATELET COUNT 249 10^3/uL (130-400); RED CELL DISTRIBUTION WIDTH 14.1 % (10.0-14.5); WHITE BLOOD COUNT 10.7 10^3/uL (4.3-11.0)
[2019-10-07 05:44] LABS: ALBUMIN 2.9 GM/DL (3.2-4.5)
[2019-10-07 05:46] LABS: CALCIUM 8.4 MG/DL (8.5-10.1)
[2019-10-07 05:47] LABS: TOTAL PROTEIN 6.7 GM/DL (6.4-8.2)
[2019-10-07 05:49] LABS: BILIRUBIN,TOTAL 0.8 MG/DL (0.1-1.0)
[2019-10-07 05:50] LABS: CREATININE SERUM 0.92 MG/DL (0.60-1.30)
[2019-10-07] MEDS: inSUlin ASPART (NovoLOG) 1 UNIT/0.01 ML (CHARGE PER UNIT) SC SCH ×4 (06:00→21:24)
[2019-10-07] MEDS: POTASSIUM CL 10MEQ/50ML IVPB 50 ML IV SCH (07:16)
[2019-10-07] MEDS: MAGNESIUM 1 GM/100 ML IVPB 100 ML IV SCH (07:17)
[2019-10-07] MEDS: KCL 20 MEQ TAB (K-DUR) PO SCH ×2 (07:17→21:23)
[2019-10-07 07:54] VITALS: BP 146/82
[2019-10-07] MEDS: GABAPENTIN 100 MG (NEURONTIN) CAP PO SCH ×3 (08:21→21:22)
--- NOTE | 2019-10-07 09:47 | Progress Note - Urology ---
Progress Note-Urology Progress Notes/Assess & Plan Progress/Assessment & Plan PATIENT IMPROVING. COVID NEGATIVE. [facility] IN 2 WEEKS Final Diagnosis RECURRENT UTIS CHUCK GARDUNO MD Oct 07, 2019 09:46
--- NOTE | 2019-10-07 09:49 | Progress Note - Hospitalist ---
Subjective HPI/CC On Admission Date Seen by Provider: Oct 07, 2019 Time Seen by Provider: 09:10 CC: Severe sepsis/ Septic shock HPI: This is a 79yoWF clinic Pt of Dr. Chandra, who was sent to a higher level of care after she presented to the [facility] ER in severe sepsis with early septic shock. I had taken care of her in march for Pyelonephritis and at that point she did require Levophed and aggressive treatment but she reports that she has had a couple of UTIs in the past since that time and I will go ahead and consult urology to try to prevent the recurrence of this issue. She continues to smoke. Overall she is doing fairly well, she is able to contemplate eating and drinking safely and she is more alert. I conferred with RN and reviewed meds and labs and we are awaiting the COVID-19 swab. Subjective/Events-last exam Patient has multiple questions and concerns about the recurrent urosepsis. She would like to see a urologist while here. This was discussed with Dr. Lopez who will see her today and set her up for outpatient evaluation. In addition will check a post void residual if possible. Review of Systems Genitourinary: Frequency Neurological: Weakness Objective Exam Vital Signs Vital Signs Date Time Temp Pulse Resp B/P (MAP) Pulse Ox O2 Delivery O2 Flow Rate FiO2 10/07/19 11:48 37.1 76 14 138/76 (96) 93 Room Air 10/06/19 10:00 1.00 Capillary Refill : Less Than 3 Seconds General Appearance: No Apparent Distress, WD/WN HEENT: Normal ENT Inspection, Pharynx Normal Neck: Limited Range of Motion Respiratory: Decreased Breath Sounds, Wheezing Cardiovascular: Regular Rate, Rhythm, No Gallop, Systolic Murmur Gastrointestinal: Soft Back: Decreased Range of Motion Extremity: Non Tender Results/Procedures Lab Laboratory Tests 10/07/19 05:10 Patient resulted labs reviewed. Assessment/Plan Assessment and Plan Assess & Plan/Chief Complaint Septic shock resolved UTI-recurrent urology consult and check for postvoid residual Acute renal failure-resolved Osteoporosis Spinal compression fractures DM insulin requiring with several episodes hypoglycemia will decrease evening Levemir COPD Current smoker Hypokalemia replace Clinical Quality Measures DVT/VTE Risk/Contraindication: Risk Factor Score Per Nursin RFS Level Per Nursing on Admit: 4+=Very High KAYLYNN RAMOS MD Oct 07, 2019 09:49
--- NOTE | 2019-10-07 11:29 | NUR ---
RD ASSESSMENT PMHx: COPD; emphysema; HTN; chronic UTI; DM PT INTERACTION: Pt was awake and pleasant during nutrition assessment. Pt states current appetite is not great, and has been this way for awhile. Note avg PO intake 53% x2d, per chart review. Pt states trying to follow low-CHO diet at home, and has no issues with chewing/swallowing food. Pt states some recent issues with nausea, vomiting, constipation, and diarrhea. Note last BM was 10/05, and pt not currently on bowel regimen per chart review. Pt states no recent wt changes. Note unable to determine recent wt hx, per chart review. Pt states current DM management is pretty good, but is unsure of recent avg blood glucose levels. When asked about HbA1c: "I'm not sure but my doctor was very happy with it. I think he said 7.1, maybe." Note unable to determine recent HbA1c, per chart review. ABNORMAL NUTRITION-RELATED LAB VALUES LOW: K 3.0; glu 61; Ca 8.4; alb 2.9 HIGH: Est. kcal needs: 1225 kcal | 20 kcal/kg Est. Pro needs: 61 g Pro | 1.0 g Pro/kg PES STATEMENT: Inadequate oral intake (NI-2.1) related to loss of appetite | nausea | vomiting | constipation | diarrhea as evidenced by pt interview | avg PO intake 53% x2d INTERVENTION: Continue with current diet order of Regular diet. Pt may benefit from consistent CHO restriction if blood glucose levels become elevated. Add Glucerna (vary) to meals TID, for increased kcal intake. Provides 220 kcal and 10 g Pro per serving. Discussed and provided diet education on DM management. Was able to reinforce CHO counting and portion control, as well as discussed fiber intake and protein intake. Pt verbalized understanding. Will continue to follow and reassess as pt needs, intake, and status change. MONITOR/EVALUATE: PO Intake; Plan of Care; Hydration Status; Weight Status; Lab Values Duncan Winston, MS, RD, LD
[2019-10-07 11:48] VITALS: BP 138/76
--- NOTE | 2019-10-07 11:48 | NUR ---
provided prayer and Communion.
[2019-10-07] MEDS ORDERED: IOHEXOL 350 MG/ML 100 ML (OMNIPAQUE 350) VIAL IV ONE (13:30)
[2019-10-07] MEDS ORDERED: NS 100 ML (IVPB) BAG IV ONE (13:30)
[2019-10-07] MEDS ORDERED: HOLD METFORMIN - RECEIVED CONTRAST 20 ML VIAL IV SCH (13:30)
--- NOTE | 2019-10-07 14:17 | Diagnostic Imaging Report ---
PROCEDURE: CT abdomen and pelvis with contrast. TECHNIQUE: Multiple contiguous axial images were obtained through the abdomen and pelvis after administration of intravenous contrast. Auto Exposure Controls were utilized during the CT exam to meet ALARA standards for radiation dose reduction. INDICATION: Urosepsis. COMPARISON: No prior studies are available for comparison. FINDINGS: Imaging through the lung bases demonstrates small bilateral pleural effusions. There appears to be some questionable infiltrate or atelectasis in the posterior bases as well. The liver demonstrates generalized low density, consistent with hepatic steatosis. No discrete liver mass is identified. Gallbladder appears to be surgically absent. The pancreas and spleen are unremarkable. No adrenal mass is identified. There is symmetric enhancement of both kidneys. There appears to be excretion of contrast into both renal collecting systems and ureters. No hydronephrosis is identified. A tiny cortical low density in the left kidney upper pole is noted, suggestive of a cyst. Aorta and iliac vessels are heavily calcified. There is no aneurysm identified. There are mildly prominent central retroperitoneal lymph nodes at the level of the renal vasculature. A lymph node in the left periaortic location measures 16 mm x 12 mm. Bowel loops are normal in caliber. There is no obstruction. There is diverticulosis of the sigmoid but no evidence of acute diverticulitis. No free fluid, fluid collection, or free air is identified. Bladder is without evidence of wall thickening or mass. Bladder is low in position in the pelvis, suggestive of pelvic relaxation. No pelvic lymphadenopathy is seen. Evaluation of the bony structures demonstrates kyphoplasty changes at L4 and L5. There is a compression fracture deformity of the L3 vertebral body, age indeterminate. IMPRESSION: 1. Small bilateral pleural effusions with minimal infiltrates or atelectasis of both lower lobes. 2. Hepatic steatosis. 3. Uncomplicated sigmoid diverticulosis. 4. No evidence of urinary tract obstruction. There is a small probable cyst in the left kidney. 5. Indeterminate mildly prominent lymph nodes in the central retroperitoneum. 6. Pelvic relaxation. Dictated by: Dictated on workstation # [id number]
[2019-10-07 16:19] VITALS: BP 168/76
--- NOTE | 2019-10-07 16:43 | NUR ---
current BP is higher then usual 168/76 HR 91. patient sitting in recliner verbalizes feeling fine. Dr Deluna notified and said monitor BP and HR for now since patient doesn't take BP medication at home
[2019-10-07 19:48] VITALS: BP 166/81
[2019-10-07] MEDS: FAMOTIDINE 20 MG (PEPCID) TABLET PO SCH (21:22)
[2019-10-07] MEDS: MELATONIN 10 MG TABLET PO PRN (21:23)
[2019-10-08] MEDS: PIPERACILLIN/TAZOBACTAM (BULK) 4.5 GM in NS (IVPB) 100 ML IV SCH ×2 (03:34→11:13)
[2019-10-08] MEDS: inSUlin ASPART (NovoLOG) 1 UNIT/0.01 ML (CHARGE PER UNIT) SC SCH ×2 (06:00→11:18)
[2019-10-08 07:43] VITALS: BP 145/71
--- NOTE | 2019-10-08 08:06 | NUR ---
External lab result from [facility] for COVID was reported as negative by Daan Roman RN.
[2019-10-08] MEDS: GABAPENTIN 100 MG (NEURONTIN) CAP PO SCH (08:11)
[2019-10-08] MEDS: FAMOTIDINE 20 MG (PEPCID) TABLET PO SCH (08:11)
[2019-10-08] MEDS: KCL 20 MEQ TAB (K-DUR) PO SCH (08:11)
[2019-10-08] MEDS ORDERED: FAMOTIDINE 20 MG (PEPCID) TABLET PO SCH (09:00)
[2019-10-08 10:53] VITALS: BP 143/62
[2019-10-08 11:20] VITALS: BP 143/62
[2019-10-08] MEDS ORDERED: CIPR250T3 PO (11:30)
[2019-10-08 12:15] VITALS: BP 143/62
[2019-10-09] MEDS ORDERED: FAMOTIDINE 20 MG (PEPCID) TABLET PO SCH (09:00)
== END 2019-10-08 12:15 | disposition home or self-care (01) | DRG 871 ==
LOC: ICU 23:27 → 4TH 10-06 11:06
PROVIDERS: ADMIT Internal Medicine; ATTEND Internal Medicine
PROC: 02HV33Z Insertion of Infusion Device into Superior Vena Cava, Percutaneous Approach (ICD-10-PCS; principal; 2019-10-04)
DX: A41.9 Sepsis, unspecified organism (principal); R65.21 Severe sepsis with septic shock; N39.0 Urinary tract infection, site not specified; E87.2 Acidosis; N17.9 Acute kidney failure, unspecified; J44.9 Chronic obstructive pulmonary disease, unspecified; R09.02 Hypoxemia; M81.0 Age-related osteoporosis without current pathological fracture; F17.210 Nicotine dependence, cigarettes, uncomplicated; E87.6 Hypokalemia; Z88.2 Allergy status to sulfonamides; Z88.5 Allergy status to narcotic agent
CPT/HCPCS: 36415; 71045; 74177; 80048; 80053; 81000; 82805; 82962; 83605; 83735; 84100; 85007; 85025; 85027; 87040; 87077; 87081; 87088; 87186; 87449; 87899

== ENCOUNTER → 2019-10-03 | Outpatient (CLI) | payer OTHER, MEDICARE ==
[~2019-10-03] MED LIST changes: +ASCO250T17 PO; +CHOL500050 PO; +DOCU100T7 PO; +GABA-486 PO; -GLIM2TAB PO; +GLIM2TAB4 PO; +MELA5TAB14 PO; +OMEP20TA33 PO
== END ==
LOC: LABNPT 20:31
PROVIDERS: ATTEND Nurse Practitioner Family
DX: Z01.89 Encounter for other specified special examinations (principal)
CPT/HCPCS: 84145